=== PATIENT | female | born 1985 | race Caucasian/White ===

== ENCOUNTER 2023-11-20 10:57 | Emergency (ER) | payer OTHER, SELFPAY ==
[2023-11-20 11:13] VITALS: BP 97/65
[2023-11-20 11:39] VITALS: BMI 35.6
--- NOTE | 2023-11-20 11:46 | ED.GENMED ---
History of Present Illness
<Quinn Perry MD - Last Filed: 11/22/23 19:08>
General
Chief Complaint: Abdominal Pain
Source: patient
Exam Limitations: none
Time Seen by Provider: 11/20/23 11:29
Nursing documentation reviewed up to this point in time: agreed with
History of Present Illness
History of Present Illness:
Patient presents to ED secondary to persistent upper abdominal pain associated with vomiting episodes, which woke the patient up from sleep at 1 AM. Abdominal pain described as sharp, nonradiating, without any alleviating or exacerbating factors.
Patient states that she had similar symptoms couple weeks ago, which resolved spontaneously. Denies fever or chills. Denies diarrhea. Denies recent change in medications or diet. Patient surgical history includes bariatric surgery in 2019 at
[facility].
Review of Systems
<Quinn Perry MD - Last Filed: 11/22/23 19:08>
Review of Systems
Allergies reviewed?: Yes
All Other Systems: ROS reviewed and negative except as documented in HPI and ROS
Constitutional: Reports no symptoms; Denies fever
EENT: Reports no symptoms
Respiratory: Reports no symptoms
Cardiac: Reports no symptoms
ABD/GI: Reports abdominal pain, nausea and vomiting; Denies diarrhea
Musculoskeletal: Reports no symptoms
Skin: Reports no symptoms
Neurological: Reports no symptoms
Phy Exam
<Quinn Perry MD - Last Filed: 11/22/23 19:08>
Physical Exam
Physical Exam:
Physical Exam
General: mild painful distress, not acutely ill. afebrile
Head: nc/at. eomi
Neck: supple. no meningeal signs.
Heart: s1/s2 regular rate and rhythm, no murmur. equal radial pulses.
Lungs: no acute respiratory distress. clear bilaterally
Abdomen: normal bowel sounds. moderate tenderness to palpation over epigastric/RUQ without distention.
Neuro: alert and oriented. no focal neurological deficits
Skin: no rash
Psychiatric: well kept. interactive and cooperative
Extremities: no edema. no calf tenderness.
Course
<Quinn Perry MD - Last Filed: 11/22/23 19:08>
Orders/Labs/Results
Orders:
Orders
11/20/23 11:44
Test Result ONCE
US Abdomen Complete/Upper Urgent
Comment:
Reason For Exam: epigastric/RUQ pain, s/p bariatric sx
11/20/23 11:45
0.9% Sodium Chloride 1000 ml [Nss] 1,000 ml IV BOLUS
HYDROmorphone [Dilaudid] 0.5 mg IV NOW STA
Ondansetron Injectable [Zofran] 4 mg IV NOW STA
11/20/23 12:59
HYDROmorphone [Dilaudid] 0.5 mg IV NOW STA
11/20/23 13:03
Complete Blood Count/With Diff Urgent
Comprehensive Metabolic Panel Urgent
HCG, Serum Qualitative Screen Urgent
Lipase Urgent
11/20/23 13:12
CT Abd/pelvis W Iv Cont Urgent
Comment:
Reason For Exam: right sided abd pain with abnormal abd US
11/20/23 15:20
Lorazepam [Ativan] 1 mg IV NOW STA
11/20/23 16:40
Ondansetron Injectable [Zofran] 4 mg .ROUTE .STK-MED ONE
11/20/23 16:41
Ondansetron Injectable [Zofran] 4 mg IV NOW STA
11/20/23 18:48
HYDROmorphone [Dilaudid] 0.5 mg .ROUTE .STK-MED ONE
11/20/23 18:51
HYDROmorphone [Dilaudid] 0.5 mg IV NOW STA
Abnormal Lab Results
11/20/23
13:03
Absolute Neuts (auto) 8.6 H 10^3/uL
(1.4-6.5)
Absolute Lymphs (auto) 0.7 L 10^3/uL
(1.2-3.4)
Neutrophils % 89.6 H %
(42.2-75.2)
Lymphocytes % 7.1 L %
(20.5-51.1)
Chloride 114 H mmol/L
(98-107)
Carbon Dioxide 20 L mmol/L
(22-30)
Creatinine 0.5 L mg/dL
(0.6-1.0)
Calcium 7.4 L mg/dl
(8.4-10.2)
Total Bilirubin 1.8 H mg/dl
(0.2-1.3)
Total Protein 5.7 L g/dl
(6.3-8.2)
Albumin 3.2 L g/dl
(3.5-5.0)
11/20/23 13:03
11/20/23 13:03
Vital Signs
Initial and Last Documented VS:
Initial Vital Signs
Pulse Resp BP Pulse Ox
89 18 97/65 97
11/20/23 11:13 11/20/23 11:13 11/20/23 11:13 11/20/23 11:13
Last Documented Vital Signs
Temp Pulse Resp BP Pulse Ox
97.7 F 72 18 130/85 98
11/20/23 11:42 11/20/23 21:15 11/20/23 21:15 11/20/23 17:00 11/20/23 21:15
<Isaac Buchanan MD - Last Filed: 11/20/23 19:30>
Orders/Labs/Results
Orders:
Orders
11/20/23 11:44
Test Result ONCE
US Abdomen Complete/Upper Urgent
Comment:
Reason For Exam: epigastric/RUQ pain, s/p bariatric sx
11/20/23 11:45
0.9% Sodium Chloride 1000 ml [Nss] 1,000 ml IV BOLUS
HYDROmorphone [Dilaudid] 0.5 mg IV NOW STA
Ondansetron Injectable [Zofran] 4 mg IV NOW STA
11/20/23 12:59
HYDROmorphone [Dilaudid] 0.5 mg IV NOW STA
11/20/23 13:03
Complete Blood Count/With Diff Urgent
Comprehensive Metabolic Panel Urgent
HCG, Serum Qualitative Screen Urgent
Lipase Urgent
11/20/23 13:12
CT Abd/pelvis W Iv Cont Urgent
Comment:
Reason For Exam: right sided abd pain with abnormal abd US
11/20/23 15:20
Lorazepam [Ativan] 1 mg IV NOW STA
11/20/23 16:40
Ondansetron Injectable [Zofran] 4 mg .ROUTE .STK-MED ONE
11/20/23 16:41
Ondansetron Injectable [Zofran] 4 mg IV NOW STA
11/20/23 18:48
HYDROmorphone [Dilaudid] 0.5 mg .ROUTE .STK-MED ONE
11/20/23 18:51
HYDROmorphone [Dilaudid] 0.5 mg IV NOW STA
Abnormal Lab Results
11/20/23
13:03
Absolute Neuts (auto) 8.6 H 10^3/uL
(1.4-6.5)
Absolute Lymphs (auto) 0.7 L 10^3/uL
(1.2-3.4)
Neutrophils % 89.6 H %
(42.2-75.2)
Lymphocytes % 7.1 L %
(20.5-51.1)
Chloride 114 H mmol/L
(98-107)
Carbon Dioxide 20 L mmol/L
(22-30)
Creatinine 0.5 L mg/dL
(0.6-1.0)
Calcium 7.4 L mg/dl
(8.4-10.2)
Total Bilirubin 1.8 H mg/dl
(0.2-1.3)
Total Protein 5.7 L g/dl
(6.3-8.2)
Albumin 3.2 L g/dl
(3.5-5.0)
11/20/23 13:03
11/20/23 13:03
Vital Signs
Initial and Last Documented VS:
Initial Vital Signs
Pulse Resp BP Pulse Ox
89 18 97/65 97
11/20/23 11:13 11/20/23 11:13 11/20/23 11:13 11/20/23 11:13
Last Documented Vital Signs
Temp Pulse Resp BP Pulse Ox
97.7 F 72 18 130/85 98
11/20/23 11:42 11/20/23 21:15 11/20/23 21:15 11/20/23 17:00 11/20/23 21:15
<Quinn Perry MD - Last Filed: 11/22/23 19:08>
MDM/Problems Addressed
MDM/Problems Addressed:
Ultrasound abdomen: Cholelithiasis
Patient reports improvement in symptoms after treatment. However, on repeat exam, patient continues to have significant upper as well as lower abdominal pain. As such, decision made to obtain CT abdomen pelvis to evaluate for potential other
etiology, including appendicitis.
<Quinn Perry MD - Last Filed: 11/22/23 19:08>
*Critical Care Note
Total Time (30-74mins, 75-104mins- exclusive of procedures): Not Applicable
<Isaac Buchanan MD - Last Filed: 11/20/23 19:30>
Update Note
Update Note:
Patient CT shows duodenal switch gastric surgery. Abnormal bowel wall thickening involving duodenum and jejunum with associated mesenteric edema and ascites. Large differential. Copy of CT report given to patient. With ongoing pain and abnormal
CT findings although not clearly acutely surgical, patient does warrant inpatient management. Discussed with our surgical team who is not comfortable with management and feels she should be at a bariatric center. We have contacted [facility]
transfer for hopeful transfer to [place] where her bariatric surgeon is present.
ED Attending Note
<Quinn Perry MD - Last Filed: 11/22/23 19:08>
-
Portions of this chart may have been created with voice recognition software.� Occasional wrong word or��sound alike� substitutions may have occurred due to the inherent limitations of voice recognition software.
Discharge Plan
Departure
Patient Disposition: Acute Care Hospital
Date of Disposition: 11/20/23
Time of Disposition: 19:49
Discharge Problem:
Acute abdominal pain, History of duodenal switch gastric surge
Referrals:
Isaac Gordon, DO [Family Provider] -
Hospital Transfer
Other hospital: [facility]
I certify that the patient requires transfer: Yes
Discussed case with accepting physician: bret/gastric surgeon
Reason for transfer: higher level of care
Interventions
Interventions:
*Risk Screen - Suicide Last Done: 11/20/23 11:42
*General Assessment Last Done: 11/20/23 11:42
*Neglect/Abuse Screening Last Done: 11/20/23 11:42
ED- Fall Risk Assessment Last Done: 11/20/23 11:42
*ED COVID-19 Vaccine History Last Done: 11/20/23 11:42
*Nursing Disposition Last Done: 11/20/23 22:09
[facility] Last Done: 11/20/23 11:42
Discharge Date and Time
Discharge Date/Time: 11/20/23 22:11
Print Language: SLOVENIAN
[2023-11-20 12:00] VITALS: BP 120/93
[2023-11-20] MEDS: NSS 1000 IV (12:01)
[2023-11-20] MEDS: ZOFRAN 4 MG IV ×2 (12:01→16:41)
[2023-11-20] MEDS: DILAUDID 0.5 MG IV ×3 (12:01→18:51)
[2023-11-20 13:06] VITALS: BP 110/89
[2023-11-20 13:24] LABS: % Basophils 0.4 % (0-2); % Immature Granulocytes 0.3 % (0-0.5); % Lymphocytes 7.1 % (20.5-51.1); % Monocytes 2.6 % (1.7-9.3); % Neutrophils 89.6 % (42.2-75.2); Absolute Lymphocytes 0.7 10^3/uL (1.2-3.4); Absolute Monocytes 0.3 10^3/uL (0.1-0.6); Absolute Neutrophils 8.6 10^3/uL (1.4-6.5); Hematocrit 42.4 % (37.0-47.0); Hemoglobin 14.1 g/dL (12.0-16.0); Mean Corp Hgb Conc. 33.3 g/dL (33.0-37.0); Mean Corpuscular Hgb 30.9 pg (27.0-31.0); Mean Corpuscular Volume 92.8 fL (81.0-99.0); Mean Platelet Volume 9.6 fL (7.4-10.4); Nucleated Red Blood Cells % 0 %; Platelet Count 189 10^3/uL (130-400); Red Blood Cell Count 4.57 10^6/uL (4.20-5.40); Red Cell Dist. Width 13.2 % (11.5-14.5); White Blood Cell Count 9.6 10^3/uL (4.8-10.8)
[2023-11-20 13:44] LABS: HCG, Serum Qualitative Screen Negative
[2023-11-20 13:45] LABS: ALT (SGPT) 30 U/L (0-35); AST (SGOT) 31 U/L (14-36); Albumin 3.2 g/dl (3.5-5.0); Alkaline Phosphatase 62 U/L (38-126); Blood Urea Nitrogen 10 mg/dl (7-17); Calcium 7.4 mg/dl (8.4-10.2); Carbon Dioxide 20 mmol/L (22-30); Chloride 114 mmol/L (98-107); Estimated Creatinine Clearance > 125 ml/min; Glucose 96 mg/dl (70-99); Lipase 122 U/L (23-300); Potassium 4.2 mmol/L (3.5-5.1); Sodium 139 mmol/L (135-145); Total Bilirubin 1.8 mg/dl (0.2-1.3); Total Protein 5.7 g/dl (6.3-8.2); eGFR > 60.00
[2023-11-20 14:00] VITALS: BP 129/87
[2023-11-20] MEDS: ATIVAN 1 MG IV (15:28)
[2023-11-20 16:44] VITALS: BP 122/85
[2023-11-20 17:00] VITALS: BP 130/85
== END 2023-11-20 22:11 | disposition short-term general hospital (02) ==
LOC: EMR 10:57
PROVIDERS: EMERGENCY PHYSICIAN Emergency Medicine; FAMILY PHYSICIAN Family Medicine
DX: R10.11 Right upper quadrant pain (principal); R10.13 Epigastric pain; R11.2 Nausea with vomiting, unspecified; R10.30 Lower abdominal pain, unspecified; R18.8 Other ascites; Z98.84 Bariatric surgery status
CPT/HCPCS: 99285; 96375 ×2; 96374; 96376 ×3; 74177; 76700; 80053; 83690; 84703; 85025; Q9967